=== PATIENT | male | born 1935 | race African-American/Black ===

== ENCOUNTER 2019-01-11 07:45 | Inpatient (IN) ==
[2019-01-11 08:40] LABS: Basophils % 0.2 % (0.0-0.8); Eosinophils % 0.2 % (0.00-10.9); Hematocrit 38.6 VOL% (42.0-52.0); Hemoglobin 12.5 GM/DL (14.0-18.0); Immature Granulocytes % 0.3 %; Immature Granulocytes Absolute 0.02 #; Lymphocytes # 0.7 10*3/uL (1.4-4.0); Lymphocytes % 10.8 % (21.2-54.2); Mean Corpuscular HGB Conc 32.4 GM/DL (32-36); Mean Corpuscular Volume 88.1 FL (87-102); Mean Platelet Volume 9.9 FL (9.6-12.0); Monocytes % 3.7 % (1.7-12.7); Neutrophils % 84.8 % (38.7-73.9); Platelet Count 220 T/CUMM (130-400); Red Blood Count 4.38 MC/CUMM (3.8-5.5); Red Cell Distribution Width 14.7 % (9.3-17.3); White Blood Count 6.3 T/CUMM (4-12)
[2019-01-11 08:48] LABS: INR 1.1; PT Patient Result 11.4 SECS (9.6-12.2)
[2019-01-11 09:06] LABS: Albumin 3.6 G/DL (3.4-5.0); Bilirubin,Total 0.6 MG/DL (0.2-1.0); Calcium 9.1 MG/DL (8.5-10.1); Osmolality,Calculated 289.8 MOS/KG (273-304); Total Protein 7.3 G/DL (6.4-8.3)
[2019-01-11] MEDS ORDERED: cloNIDine 0.1 MG TABLET PO STA (09:43)
[2019-01-11] MEDS ORDERED: ACETAMINOPHEN 325 MG TABLET PO PRN (11:29)
[2019-01-11] MEDS ORDERED: ONDANSETRON 4 MG/2 ML VIAL IV PRN (11:29)
[2019-01-11] MEDS ORDERED: ALBUTEROL/IPRATROPIUM 3 ML NEB RESP TX PRN (11:32)
[2019-01-11] MEDS ORDERED: LORazepam 2 MG/1 ML VIAL IV STA (11:32)
[2019-01-11] MEDS ORDERED: LORazepam 2 MG/1 ML VIAL ONE (11:32)
[2019-01-11] MEDS ORDERED: NITROGLYCERIN SL 0.4 MG TABLET SL PRN (11:33)
[2019-01-11] MEDS ORDERED: hydrALAZINE 20 MG/1 ML VIAL IV PRN (11:35)
[2019-01-11] MEDS ORDERED: UMECLIDINIUM INH SCH (11:45)
[2019-01-11 12:09] LABS: Apearance,Urine CLEAR (Clear); Bacteria,Urine Occasional /HPF (Few); Bilirubin,Urine Negative (Negative); Blood, Urine Large mg/dL (Negative); Glucose,Urine (UA) Negative (Negative); Hyaline Casts,Urine 2 /LPF (0-3); Ketones,Urine Negative (Negative); Mucus,Urine Occasional /LPF (Occasional); Nitrite,Urine Negative (Negative); Protein,Urine Negative; RBC,Urine 659 /HPF (0-4); Urine Color Straw (Yellow); Urine Specific Gravity 1.006 (1.001-1.035); Urine Urobilinogen < 2.0 EU/DL (0.2-1.0); WBC,Urine 9 /HPF (0-6)
[2019-01-11 12:52] LABS: CKMB % 3.4 %
[2019-01-11 12:54] LABS: Troponin I 0.315 NG/ML (0.00-0.045)
[2019-01-11] MEDS: amLODIPine 2.5 MG TABLET PO SCH (14:10)
[2019-01-11] MEDS: ASPIRIN CHEW 81 MG TABLET PO SCH (14:10)
[2019-01-11] MEDS: ROSUVASTATIN 10 MG TABLET PO SCH (14:11)
[2019-01-11] MEDS: MULTIVITAMIN (BEROCCA) TABLET PO SCH (14:11)
[2019-01-11] MEDS: CILOSTAZOL 100 MG TABLET PO SCH ×2 (14:11→21:12)
[2019-01-11] MEDS: SERTRALINE 50 MG TABLET PO SCH (14:17)
[2019-01-11] MEDS: PANTOPRAZOLE 40 MG TABLET PO SCH (14:17)
[2019-01-11] MEDS: FENOFIBRATE 48 MG TABLET PO SCH (14:18)
[2019-01-11] MEDS: FUROSEMIDE 40 MG/4 ML VIAL IV SCH (16:55)
[2019-01-11] MEDS: CARVEDILOL 25 MG TABLET PO SCH (16:58)
[2019-01-11] MEDS: ENOXAPARIN 60 MG/0.6 ML SYRINGE SUBCUT SCH (16:58)
[2019-01-11] MEDS ORDERED: ENOXAPARIN 30 MG/0.3 ML SYRINGE SUBCUT SCH (21:00)
[2019-01-11] MEDS: DONEPEZIL 10 MG TABLET PO SCH (21:12)
[2019-01-11] MEDS: LISINOPRIL 20 MG TABLET PO SCH (21:12)
[2019-01-12] MEDS: ENOXAPARIN 60 MG/0.6 ML SYRINGE SUBCUT SCH (03:54)
[2019-01-12 04:54] LABS: Basophils % 0.2 % (0.0-0.8); Eosinophils % 0.5 % (0.00-10.9); Hemoglobin 11.5 GM/DL (14.0-18.0); Immature Granulocytes % 0.2 %; Immature Granulocytes Absolute 0.01 #; Lymphocytes # 1.6 10*3/uL (1.4-4.0); Lymphocytes % 24.2 % (21.2-54.2); Mean Corpuscular HGB Conc 32.9 GM/DL (32-36); Mean Platelet Volume 10.7 FL (9.6-12.0); Monocytes % 12.8 % (1.7-12.7); Neutrophils % 62.1 % (38.7-73.9); Platelet Count 222 T/CUMM (130-400); Red Blood Count 4.07 MC/CUMM (3.8-5.5); Red Cell Distribution Width 14.7 % (9.3-17.3); White Blood Count 6.4 T/CUMM (4-12)
[2019-01-12 05:38] LABS: Bilirubin,Total 0.6 MG/DL (0.2-1.0); Osmolality,Calculated 290.8 MOS/KG (273-304); Risk Ratio 5.53; Total Protein 6.5 G/DL (6.4-8.3); VLDL CHOLESTEROL 13.8 MG/DL
[2019-01-12 05:41] LABS: Troponin I 0.245 NG/ML (0.00-0.045)
[2019-01-12] MEDS: amLODIPine 2.5 MG TABLET PO SCH (09:23)
[2019-01-12] MEDS: POTASSIUM CHLORIDE 10 MEQ TABLET PO SCH (09:23)
[2019-01-12] MEDS: FENOFIBRATE 48 MG TABLET PO SCH (09:23)
[2019-01-12] MEDS: CILOSTAZOL 100 MG TABLET PO SCH ×2 (09:23→20:58)
[2019-01-12] MEDS: MULTIVITAMIN (BEROCCA) TABLET PO SCH (09:23)
[2019-01-12] MEDS: SERTRALINE 50 MG TABLET PO SCH (09:24)
[2019-01-12] MEDS: PANTOPRAZOLE 40 MG TABLET PO SCH (09:24)
[2019-01-12] MEDS: FUROSEMIDE 40 MG/4 ML VIAL IV SCH ×2 (09:24→17:04)
[2019-01-12] MEDS: ROSUVASTATIN 10 MG TABLET PO SCH (09:24)
[2019-01-12] MEDS: CARVEDILOL 25 MG TABLET PO SCH ×2 (09:24→17:06)
[2019-01-12] MEDS: ASPIRIN CHEW 81 MG TABLET PO SCH (09:26)
[2019-01-12] MEDS: DONEPEZIL 10 MG TABLET PO SCH (20:58)
[2019-01-12] MEDS: LISINOPRIL 20 MG TABLET PO SCH (20:58)
[2019-01-13] MEDS: ENOXAPARIN 40 MG/0.4 ML SYRINGE SUBCUT SCH (05:26)
[2019-01-13] MEDS: ASPIRIN CHEW 81 MG TABLET PO SCH (08:41)
[2019-01-13] MEDS: MULTIVITAMIN (BEROCCA) TABLET PO SCH (08:42)
[2019-01-13] MEDS: CILOSTAZOL 100 MG TABLET PO SCH ×2 (08:42→20:36)
[2019-01-13] MEDS: ROSUVASTATIN 10 MG TABLET PO SCH (08:42)
[2019-01-13] MEDS: SERTRALINE 50 MG TABLET PO SCH (08:42)
[2019-01-13] MEDS: PANTOPRAZOLE 40 MG TABLET PO SCH (08:42)
[2019-01-13] MEDS: amLODIPine 2.5 MG TABLET PO SCH (08:42)
[2019-01-13] MEDS: FENOFIBRATE 48 MG TABLET PO SCH (08:42)
[2019-01-13] MEDS: POTASSIUM CHLORIDE 10 MEQ TABLET PO SCH (08:43)
[2019-01-13] MEDS: FUROSEMIDE 40 MG/4 ML VIAL IV SCH (08:43)
[2019-01-13] MEDS: CARVEDILOL 25 MG TABLET PO SCH ×2 (08:43→16:06)
[2019-01-13] MEDS ORDERED: MAGNESIUM SULF RIDER 2 GM in PREMIX 1 EACH IV PRN (10:02)
[2019-01-13] MEDS ORDERED: MAGNESIUM SULF RIDER 4 GM in PREMIX 1 EACH IV PRN (10:02)
[2019-01-13] MEDS ORDERED: amLODIPine 2.5 MG TABLET PO ONE (10:06)
[2019-01-13] MEDS: FUROSEMIDE 40 MG TABLET PO SCH (16:06)
[2019-01-13] MEDS: LISINOPRIL 20 MG TABLET PO SCH (20:36)
[2019-01-13] MEDS: DONEPEZIL 10 MG TABLET PO SCH (20:36)
[2019-01-14] MEDS: ENOXAPARIN 40 MG/0.4 ML SYRINGE SUBCUT SCH (04:28)
[2019-01-14 04:39] LABS: Basophils % 0.5 % (0.0-0.8); Eosinophils # 0.1 10*3/uL (0.0-0.87); Eosinophils % 1.3 % (0.00-10.9); Hemoglobin 12.8 GM/DL (14.0-18.0); Immature Granulocytes % 0.2 %; Immature Granulocytes Absolute 0.01 #; Lymphocytes # 1.6 10*3/uL (1.4-4.0); Lymphocytes % 24.6 % (21.2-54.2); Mean Corpuscular HGB Conc 32.8 GM/DL (32-36); Mean Corpuscular Volume 85.7 FL (87-102); Mean Platelet Volume 9.9 FL (9.6-12.0); Neutrophils % 62.4 % (38.7-73.9); Platelet Count 214 T/CUMM (130-400); Red Blood Count 4.55 MC/CUMM (3.8-5.5); Red Cell Distribution Width 14.4 % (9.3-17.3); White Blood Count 6.3 T/CUMM (4-12)
[2019-01-14 05:13] LABS: Calcium 9.2 MG/DL (8.5-10.1); Osmolality,Calculated 284.5 MOS/KG (273-304)
[2019-01-14] MEDS: POTASSIUM CHLORIDE 20 MEQ TABLET PO PRN ×2 (05:42→08:36)
[2019-01-14] MEDS: CILOSTAZOL 100 MG TABLET PO SCH ×2 (08:35→21:29)
[2019-01-14] MEDS: PANTOPRAZOLE 40 MG TABLET PO SCH (08:35)
[2019-01-14] MEDS: ASPIRIN CHEW 81 MG TABLET PO SCH (08:35)
[2019-01-14] MEDS: ROSUVASTATIN 10 MG TABLET PO SCH (08:36)
[2019-01-14] MEDS: FENOFIBRATE 48 MG TABLET PO SCH (08:36)
[2019-01-14] MEDS: MULTIVITAMIN (BEROCCA) TABLET PO SCH (08:36)
[2019-01-14] MEDS: POTASSIUM CHLORIDE 10 MEQ TABLET PO SCH (08:36)
[2019-01-14] MEDS: amLODIPine 5 MG TABLET PO SCH (08:36)
[2019-01-14] MEDS: SERTRALINE 50 MG TABLET PO SCH (08:36)
[2019-01-14] MEDS: CARVEDILOL 25 MG TABLET PO SCH ×2 (08:36→18:40)
[2019-01-14] MEDS: FUROSEMIDE 40 MG TABLET PO SCH ×2 (08:37→18:39)
[2019-01-14] MEDS: LISINOPRIL 20 MG TABLET PO SCH (21:29)
[2019-01-14] MEDS: DONEPEZIL 10 MG TABLET PO SCH (21:30)
[2019-01-15] MEDS: ENOXAPARIN 40 MG/0.4 ML SYRINGE SUBCUT SCH (05:17)
[2019-01-15] MEDS: ROSUVASTATIN 10 MG TABLET PO SCH (08:49)
[2019-01-15] MEDS: CILOSTAZOL 100 MG TABLET PO SCH (08:49)
[2019-01-15] MEDS: ASPIRIN CHEW 81 MG TABLET PO SCH (08:49)
[2019-01-15] MEDS: MULTIVITAMIN (BEROCCA) TABLET PO SCH (08:49)
[2019-01-15] MEDS: SERTRALINE 50 MG TABLET PO SCH (08:49)
[2019-01-15] MEDS: PANTOPRAZOLE 40 MG TABLET PO SCH (08:49)
[2019-01-15] MEDS: FENOFIBRATE 48 MG TABLET PO SCH (08:49)
[2019-01-15] MEDS: FUROSEMIDE 40 MG TABLET PO SCH (08:50)
[2019-01-15] MEDS: POTASSIUM CHLORIDE 10 MEQ TABLET PO SCH (08:50)
[2019-01-15] MEDS: CARVEDILOL 25 MG TABLET PO SCH (08:50)
[2019-01-15] MEDS: POTASSIUM CHLORIDE 20 MEQ TABLET PO PRN (08:50)
[2019-01-15] MEDS: amLODIPine 5 MG TABLET PO SCH (08:50)
[2019-01-15 12:14] VITALS: BP 105/56
== END 2019-01-15 15:31 | disposition home health service (06) | DRG 292 ==
LOC: EDUNIT# → EDBD → N.ED 07:45 → N.EDINP 11:28 → SUATTDRO 11:28 → N.EDINP 12:15 → N.TELES 12:44
PROVIDERS: ADMIT Internal Medicine; ATTEND Internal Medicine Geriatric Medicine

== ENCOUNTER 2019-12-30 16:20 | Inpatient (IN) ==
[2019-12-30] MEDS ORDERED: ALBUTEROL/IPRATROPIUM 3 ML NEB RESP TX STA (17:06)
[2019-12-30 17:36] LABS: Troponin I 0.087 NG/ML (0.00-0.045)
[2019-12-30 17:45] LABS: Bilirubin,Total 0.5 MG/DL (0.2-1.0); Calcium 9.1 MG/DL (8.5-10.1); Osmolality,Calculated 286.8 MOS/KG (273-304); Total Protein 6.8 G/DL (6.4-8.3)
[2019-12-30 17:52] LABS: Basophils % 0.3 % (0.0-0.8); Eosinophils % 0.4 % (0.00-10.9); Hematocrit 35.6 VOL% (42.0-52.0); Hemoglobin 11.5 GM/DL (14.0-18.0); Immature Granulocytes % 0.3 %; Immature Granulocytes Absolute 0.02 #; Lymphocytes # 1.2 10*3/uL (1.4-4.0); Lymphocytes % 15.8 % (21.2-54.2); Mean Corpuscular HGB Conc 32.3 GM/DL (32-36); Mean Platelet Volume 9.5 FL (9.6-12.0); Monocytes % 6.8 % (1.7-12.7); Neutrophils % 76.4 % (38.7-73.9); Platelet Count 184 T/CUMM (130-400); Red Blood Count 4.09 MC/CUMM (3.8-5.5); Red Cell Distribution Width 14.9 % (9.3-17.3); White Blood Count 7.6 T/CUMM (4-12)
[2019-12-30 18:18] LABS: INR 1.1; PT Patient Result 11.9 SECS (9.8-11.9); Partial Thromboplastin Time 25.8 SECS (23.9-33.8)
[2019-12-30] MEDS ORDERED: DEXTROSE 50% 25 GM/50 ML VIAL IV PRN (19:10)
[2019-12-30] MEDS ORDERED: GLUCAGON 1 MG VIAL IM PRN (19:10)
[2019-12-30] MEDS ORDERED: MAGNESIUM SULF RIDER 2 GM in PREMIX 1 EACH IV PRN (19:21)
[2019-12-30] MEDS ORDERED: hydrALAZINE 20 MG/1 ML VIAL IV PRN (19:32)
[2019-12-30] MEDS ORDERED: LORazepam 2 MG/1 ML VIAL IM STA (19:47)
[2019-12-31 00:14] LABS: Troponin I 0.112 NG/ML (0.00-0.045)
[2019-12-31] MEDS: ENOXAPARIN 40 MG/0.4 ML SYRINGE SUBCUT SCH ×2 (01:47→20:33)
[2019-12-31 01:53] LABS: Troponin I 0.147 NG/ML (0.00-0.045)
[2019-12-31] MEDS: ALBUTEROL/IPRATROPIUM 3 ML NEB RESP TX SCH ×4 (02:10→20:22)
[2019-12-31] MEDS ORDERED: LORazepam 2 MG/1 ML VIAL IM ONE (02:30)
[2019-12-31 06:02] LABS: Basophils % 0.3 % (0.0-0.8); Eosinophils % 0.2 % (0.00-10.9); Hematocrit 34.8 VOL% (42.0-52.0); Hemoglobin 11.3 GM/DL (14.0-18.0); Immature Granulocytes % 0.3 %; Immature Granulocytes Absolute 0.02 #; Lymphocytes # 1.1 10*3/uL (1.4-4.0); Lymphocytes % 16.3 % (21.2-54.2); Mean Corpuscular HGB Conc 32.5 GM/DL (32-36); Mean Platelet Volume 10.7 FL (9.6-12.0); Monocytes % 7.5 % (1.7-12.7); Neutrophils % 75.4 % (38.7-73.9); Platelet Count 193 T/CUMM (130-400); Red Cell Distribution Width 14.8 % (9.3-17.3); White Blood Count 6.6 T/CUMM (4-12)
[2019-12-31 06:59] LABS: Calcium 9.2 MG/DL (8.5-10.1); Risk Ratio 5.72; Thyroid Stimulating Hormone 1.35 uIU/ml (0.358-3.74); VLDL CHOLESTEROL 17.2 MG/DL
[2019-12-31] MEDS ORDERED: POTASSIUM CHLORIDE 20 MEQ TABLET PO ONE (07:52)
[2019-12-31] MEDS: ASPIRIN EC 325 MG TABLET PO SCH (09:13)
[2019-12-31] MEDS: PANTOPRAZOLE 40 MG TABLET PO SCH (09:13)
[2019-12-31] MEDS: FUROSEMIDE 40 MG TABLET PO SCH ×2 (09:21→18:04)
[2019-12-31] MEDS ORDERED: HALOPERIDOL 5 MG/ML AMP IV ONE (13:37)
[2019-12-31] MEDS: HALOPERIDOL 5 MG/ML AMP IV PRN (20:21)
[2019-12-31] MEDS: lisinopriL 20 MG TABLET PO SCH (20:33)
[2019-12-31] MEDS: carvediloL 25 MG TABLET PO SCH (20:33)
[2019-12-31] MEDS: DONEPEZIL 10 MG TABLET PO SCH (20:33)
[2020-01-01] MEDS: HALOPERIDOL 5 MG/ML AMP IV PRN (03:00)
[2020-01-01] MEDS: ALBUTEROL/IPRATROPIUM 3 ML NEB RESP TX SCH ×4 (03:15→20:05)
[2020-01-01] MEDS: ACETAMINOPHEN 325 MG TABLET PO PRN (04:05)
[2020-01-01 08:14] LABS: Calcium 9.8 MG/DL (8.5-10.1); Osmolality,Calculated 279.4 MOS/KG (273-304)
[2020-01-01] MEDS: ZIPRASIDONE 20 MG/1 ML VIAL IM PRN ×2 (08:32→23:00)
[2020-01-01] MEDS ORDERED: amLODIPine 2.5 MG TABLET PO SCH (09:00)
[2020-01-01] MEDS ORDERED: ASPIRIN EC 81 MG TABLET PO SCH (09:00)
[2020-01-01] MEDS ORDERED: hydrALAZINE 25 MG TABLET PO SCH ×2 (09:00)
[2020-01-01] MEDS ORDERED: TUBERCULIN SKIN TEST 0.1 ML SYRINGE INTRADERM ONE (09:12)
[2020-01-01] MEDS: POTASSIUM CHLORIDE 10 MEQ TABLET PO SCH (09:48)
[2020-01-01] MEDS: FUROSEMIDE 40 MG TABLET PO SCH (09:48)
[2020-01-01] MEDS: carvediloL 25 MG TABLET PO SCH ×2 (09:48→20:50)
[2020-01-01] MEDS: ASPIRIN EC 325 MG TABLET PO SCH (09:48)
[2020-01-01] MEDS: SERTRALINE 50 MG TABLET PO SCH (09:48)
[2020-01-01] MEDS: NON-FORMULARY MEDICATION (Umeclidinium [Incruse Ellipta] 1 PUFF) INH SCH (09:49)
[2020-01-01] MEDS: POTASSIUM CHLORIDE 20 MEQ TABLET PO PRN (09:49)
[2020-01-01] MEDS: ISOSORBIDE MONONITRATE 30 MG TABLET PO SCH (09:49)
[2020-01-01] MEDS: MULTIVITAMIN (CENTRUM) TABLET PO SCH (09:49)
[2020-01-01] MEDS: PANTOPRAZOLE 40 MG TABLET PO SCH (09:49)
[2020-01-01] MEDS: ROSUVASTATIN 10 MG TABLET PO SCH (09:49)
[2020-01-01] MEDS: DONEPEZIL 10 MG TABLET PO SCH (20:50)
[2020-01-01] MEDS: hydrALAZINE 25 MG TABLET PO SCH (20:50)
[2020-01-01] MEDS: ENOXAPARIN 40 MG/0.4 ML SYRINGE SUBCUT SCH (20:50)
[2020-01-01] MEDS: lisinopriL 20 MG TABLET PO SCH (20:50)
[2020-01-02] MEDS: ALBUTEROL/IPRATROPIUM 3 ML NEB RESP TX SCH ×4 (01:11→19:41)
[2020-01-02] MEDS: carvediloL 25 MG TABLET PO SCH ×2 (09:25→20:27)
[2020-01-02] MEDS: SERTRALINE 50 MG TABLET PO SCH (09:25)
[2020-01-02] MEDS: PANTOPRAZOLE 40 MG TABLET PO SCH (09:25)
[2020-01-02] MEDS: MULTIVITAMIN (CENTRUM) TABLET PO SCH (09:25)
[2020-01-02] MEDS: FUROSEMIDE 40 MG TABLET PO SCH (09:25)
[2020-01-02] MEDS: ISOSORBIDE MONONITRATE 30 MG TABLET PO SCH (09:25)
[2020-01-02] MEDS: ASPIRIN EC 325 MG TABLET PO SCH (09:25)
[2020-01-02] MEDS: ROSUVASTATIN 10 MG TABLET PO SCH (09:25)
[2020-01-02] MEDS: hydrALAZINE 25 MG TABLET PO SCH ×2 (09:25→20:27)
[2020-01-02] MEDS: POTASSIUM CHLORIDE 10 MEQ TABLET PO SCH (09:25)
[2020-01-02 09:26] LABS: Basophils % 0.3 % (0.0-0.8); Eosinophils % 0.5 % (0.00-10.9); Hematocrit 36.8 VOL% (42.0-52.0); Hemoglobin 12.1 GM/DL (14.0-18.0); Immature Granulocytes % 0.2 %; Immature Granulocytes Absolute 0.01 #; Lymphocytes # 1.2 10*3/uL (1.4-4.0); Lymphocytes % 20.6 % (21.2-54.2); Mean Corpuscular HGB Conc 32.9 GM/DL (32-36); Mean Corpuscular Volume 86.4 FL (87-102); Mean Platelet Volume 10.2 FL (9.6-12.0); Neutrophils % 70.4 % (38.7-73.9); Platelet Count 218 T/CUMM (130-400); Red Blood Count 4.26 MC/CUMM (3.8-5.5); White Blood Count 5.9 T/CUMM (4-12)
[2020-01-02] MEDS: NON-FORMULARY MEDICATION (Umeclidinium [Incruse Ellipta] 1 PUFF) INH SCH (09:26)
[2020-01-02] MEDS ORDERED: HALOPERIDOL 5 MG/ML AMP IV PRN (09:41)
[2020-01-02 09:42] LABS: Calcium 9.7 MG/DL (8.5-10.1); Osmolality,Calculated 283.4 MOS/KG (273-304)
[2020-01-02] MEDS: ENOXAPARIN 40 MG/0.4 ML SYRINGE SUBCUT SCH (20:27)
[2020-01-02] MEDS: DONEPEZIL 10 MG TABLET PO SCH (20:27)
[2020-01-02] MEDS: lisinopriL 20 MG TABLET PO SCH (20:27)
[2020-01-03] MEDS: ALBUTEROL/IPRATROPIUM 3 ML NEB RESP TX SCH ×4 (00:18→19:25)
[2020-01-03] MEDS: ONDANSETRON 4 MG/2 ML VIAL IV PRN (01:28)
[2020-01-03] MEDS ORDERED: POTASSIUM CHLORIDE 20 MEQ TABLET PO ONE (07:42)
[2020-01-03 09:06] LABS: Calcium 9.5 MG/DL (8.5-10.1)
[2020-01-03] MEDS: ROSUVASTATIN 10 MG TABLET PO SCH (09:35)
[2020-01-03] MEDS: MULTIVITAMIN (CENTRUM) TABLET PO SCH (09:35)
[2020-01-03] MEDS: POTASSIUM CHLORIDE 10 MEQ TABLET PO SCH (09:35)
[2020-01-03] MEDS: ASPIRIN EC 325 MG TABLET PO SCH (09:35)
[2020-01-03] MEDS: FUROSEMIDE 40 MG TABLET PO SCH (09:35)
[2020-01-03] MEDS: ISOSORBIDE MONONITRATE 30 MG TABLET PO SCH (09:36)
[2020-01-03] MEDS: carvediloL 25 MG TABLET PO SCH ×2 (09:36→21:03)
[2020-01-03] MEDS: SERTRALINE 50 MG TABLET PO SCH (09:36)
[2020-01-03] MEDS: PANTOPRAZOLE 40 MG TABLET PO SCH (09:36)
[2020-01-03] MEDS: NON-FORMULARY MEDICATION (Umeclidinium [Incruse Ellipta] 1 PUFF) INH SCH (09:36)
[2020-01-03] MEDS: hydrALAZINE 25 MG TABLET PO SCH ×2 (09:36→21:03)
[2020-01-03] MEDS: ENOXAPARIN 40 MG/0.4 ML SYRINGE SUBCUT SCH (21:03)
[2020-01-03] MEDS: lisinopriL 20 MG TABLET PO SCH (21:03)
[2020-01-03] MEDS: DONEPEZIL 10 MG TABLET PO SCH (21:03)
[2020-01-04] MEDS: ALBUTEROL/IPRATROPIUM 3 ML NEB RESP TX SCH ×4 (00:14→19:40)
[2020-01-04 05:57] LABS: Calcium 9.7 MG/DL (8.5-10.1); Osmolality,Calculated 288.3 MOS/KG (273-304)
[2020-01-04] MEDS: ACETAMINOPHEN 325 MG TABLET PO PRN (06:05)
[2020-01-04] MEDS: hydrALAZINE 25 MG TABLET PO SCH ×2 (08:25→21:36)
[2020-01-04] MEDS: PANTOPRAZOLE 40 MG TABLET PO SCH (08:25)
[2020-01-04] MEDS: ONDANSETRON 4 MG/2 ML VIAL IV PRN (08:25)
[2020-01-04] MEDS: FUROSEMIDE 40 MG TABLET PO SCH (08:25)
[2020-01-04] MEDS: ASPIRIN EC 325 MG TABLET PO SCH (08:25)
[2020-01-04] MEDS: ISOSORBIDE MONONITRATE 30 MG TABLET PO SCH (08:25)
[2020-01-04] MEDS: ROSUVASTATIN 10 MG TABLET PO SCH (08:25)
[2020-01-04] MEDS: MULTIVITAMIN (CENTRUM) TABLET PO SCH (08:25)
[2020-01-04] MEDS: carvediloL 25 MG TABLET PO SCH ×2 (08:25→21:36)
[2020-01-04] MEDS: SERTRALINE 50 MG TABLET PO SCH (08:25)
[2020-01-04] MEDS: POTASSIUM CHLORIDE 20 MEQ TABLET PO PRN (08:25)
[2020-01-04] MEDS: POTASSIUM CHLORIDE 10 MEQ TABLET PO SCH (08:25)
[2020-01-04] MEDS: NON-FORMULARY MEDICATION (Umeclidinium [Incruse Ellipta] 1 PUFF) INH SCH (10:25)
[2020-01-04] MEDS ORDERED: SODIUM CHLORIDE 0.9% 250 ML IV ONE (14:24)
[2020-01-04] MEDS: lisinopriL 20 MG TABLET PO SCH (21:35)
[2020-01-04] MEDS: DONEPEZIL 10 MG TABLET PO SCH (21:35)
[2020-01-04] MEDS: DOCUSATE SODIUM 100 MG/10 ML UDCUP PO SCH (21:37)
[2020-01-04] MEDS: ENOXAPARIN 40 MG/0.4 ML SYRINGE SUBCUT SCH (21:39)
[2020-01-05] MEDS: ALBUTEROL/IPRATROPIUM 3 ML NEB RESP TX SCH ×4 (01:12→19:18)
[2020-01-05] MEDS: ONDANSETRON 4 MG/2 ML VIAL IV PRN (03:03)
[2020-01-05 06:00] LABS: Basophils % 0.2 % (0.0-0.8); Eosinophils # 0.1 10*3/uL (0.0-0.87); Eosinophils % 1.9 % (0.00-10.9); Hematocrit 37.2 VOL% (42.0-52.0); Hemoglobin 12.1 GM/DL (14.0-18.0); Immature Granulocytes % 0.2 %; Immature Granulocytes Absolute 0.01 #; Lymphocytes # 1.7 10*3/uL (1.4-4.0); Lymphocytes % 32.4 % (21.2-54.2); Mean Corpuscular HGB Conc 32.5 GM/DL (32-36); Mean Corpuscular Volume 86.5 FL (87-102); Mean Platelet Volume 10.7 FL (9.6-12.0); Neutrophils % 54.3 % (38.7-73.9); Platelet Count 237 T/CUMM (130-400); Red Cell Distribution Width 15.5 % (9.3-17.3); White Blood Count 5.3 T/CUMM (4-12)
[2020-01-05 06:18] LABS: Calcium 9.6 MG/DL (8.5-10.1); Osmolality,Calculated 287.3 MOS/KG (273-304)
[2020-01-05] MEDS: carvediloL 25 MG TABLET PO SCH ×2 (09:47→22:26)
[2020-01-05] MEDS: SERTRALINE 50 MG TABLET PO SCH (09:47)
[2020-01-05] MEDS: FUROSEMIDE 40 MG TABLET PO SCH (09:47)
[2020-01-05] MEDS: POTASSIUM CHLORIDE 10 MEQ TABLET PO SCH (09:47)
[2020-01-05] MEDS: MULTIVITAMIN (CENTRUM) TABLET PO SCH (09:47)
[2020-01-05] MEDS: ISOSORBIDE MONONITRATE 30 MG TABLET PO SCH (09:47)
[2020-01-05] MEDS: hydrALAZINE 25 MG TABLET PO SCH ×2 (09:47→22:24)
[2020-01-05] MEDS: PANTOPRAZOLE 40 MG TABLET PO SCH (09:47)
[2020-01-05] MEDS: ASPIRIN EC 325 MG TABLET PO SCH (09:47)
[2020-01-05] MEDS: ROSUVASTATIN 10 MG TABLET PO SCH (09:47)
[2020-01-05] MEDS: NON-FORMULARY MEDICATION (Umeclidinium [Incruse Ellipta] 1 PUFF) INH SCH (09:49)
[2020-01-05] MEDS: DOCUSATE SODIUM 100 MG/10 ML UDCUP PO SCH ×2 (09:49→22:27)
[2020-01-05 13:30] LABS: Troponin I 0.037 NG/ML (0.00-0.045)
[2020-01-05 15:24] LABS: Troponin I 0.033 NG/ML (0.00-0.045)
[2020-01-05 19:00] LABS: Apearance,Urine Slightly Hazy (Clear); Bacteria,Urine Occasional /HPF (Few); Bilirubin,Urine Negative (Negative); Blood, Urine Negative (Negative); Glucose,Urine (UA) Negative (Negative); Hyaline Casts,Urine 13 /LPF (0-3); Ketones,Urine Negative (Negative); Mucus,Urine Occasional /LPF (Occasional); Nitrite,Urine Negative (Negative); Protein,Urine Negative; Squamous Epithelial Cell,Urine Occasional /HPF (0-10); Urine Color Yellow (Yellow); Urine Specific Gravity 1.009 (1.001-1.035); Urine Urobilinogen < 2.0 EU/DL (0.2-1.0); WBC,Urine 71 /HPF (0-6)
[2020-01-05] MEDS: DONEPEZIL 10 MG TABLET PO SCH (22:24)
[2020-01-05] MEDS: lisinopriL 20 MG TABLET PO SCH (22:26)
[2020-01-05] MEDS: ENOXAPARIN 40 MG/0.4 ML SYRINGE SUBCUT SCH (22:30)
[2020-01-06] MEDS: ALBUTEROL/IPRATROPIUM 3 ML NEB RESP TX SCH ×4 (00:40→19:46)
[2020-01-06 05:39] LABS: Calcium 9.7 MG/DL (8.5-10.1); Osmolality,Calculated 284.4 MOS/KG (273-304)
[2020-01-06] MEDS: DOCUSATE SODIUM 100 MG/10 ML UDCUP PO SCH ×2 (09:44→21:55)
[2020-01-06] MEDS: ROSUVASTATIN 10 MG TABLET PO SCH (09:44)
[2020-01-06] MEDS: ASPIRIN EC 325 MG TABLET PO SCH (09:44)
[2020-01-06] MEDS: SERTRALINE 50 MG TABLET PO SCH (09:44)
[2020-01-06] MEDS: PANTOPRAZOLE 40 MG TABLET PO SCH (09:44)
[2020-01-06] MEDS: MULTIVITAMIN (CENTRUM) TABLET PO SCH (09:44)
[2020-01-06] MEDS: ISOSORBIDE MONONITRATE 30 MG TABLET PO SCH (09:44)
[2020-01-06] MEDS: hydrALAZINE 25 MG TABLET PO SCH (09:44)
[2020-01-06] MEDS: FUROSEMIDE 20 MG TABLET PO SCH (09:44)
[2020-01-06] MEDS: POTASSIUM CHLORIDE 10 MEQ TABLET PO SCH (09:44)
[2020-01-06] MEDS: carvediloL 25 MG TABLET PO SCH (09:44)
[2020-01-06] MEDS: NON-FORMULARY MEDICATION (Umeclidinium [Incruse Ellipta] 1 PUFF) INH SCH (09:45)
[2020-01-06] MEDS ORDERED: SODIUM CHLORIDE 0.9% 500 ML IV ONE (13:48)
[2020-01-06] MEDS: hydrALAZINE 10 MG TABLET PO SCH (21:55)
[2020-01-06] MEDS: lisinopriL 10 MG TABLET PO SCH (21:55)
[2020-01-06] MEDS: DONEPEZIL 10 MG TABLET PO SCH (21:56)
[2020-01-06] MEDS: carvediloL 12.5 MG TABLET PO SCH (21:56)
[2020-01-06] MEDS: ENOXAPARIN 40 MG/0.4 ML SYRINGE SUBCUT SCH (21:56)
[2020-01-07] MEDS: ALBUTEROL/IPRATROPIUM 3 ML NEB RESP TX SCH ×4 (00:42→19:33)
[2020-01-07 05:54] LABS: Basophils % 0.4 % (0.0-0.8); Eosinophils # 0.1 10*3/uL (0.0-0.87); Eosinophils % 2.2 % (0.00-10.9); Hematocrit 37.2 VOL% (42.0-52.0); Hemoglobin 12.1 GM/DL (14.0-18.0); Lymphocytes # 2.1 10*3/uL (1.4-4.0); Lymphocytes % 38.2 % (21.2-54.2); Mean Corpuscular HGB Conc 32.5 GM/DL (32-36); Mean Corpuscular Volume 87.5 FL (87-102); Mean Platelet Volume 10.6 FL (9.6-12.0); Monocytes % 10.3 % (1.7-12.7); Neutrophils % 48.9 % (38.7-73.9); Platelet Count 242 T/CUMM (130-400); Red Blood Count 4.25 MC/CUMM (3.8-5.5); Red Cell Distribution Width 15.4 % (9.3-17.3); White Blood Count 5.5 T/CUMM (4-12)
[2020-01-07 06:22] LABS: Calcium 9.6 MG/DL (8.5-10.1); Osmolality,Calculated 286.4 MOS/KG (273-304)
[2020-01-07] MEDS: PANTOPRAZOLE 40 MG TABLET PO SCH (08:44)
[2020-01-07] MEDS: DOCUSATE SODIUM 100 MG/10 ML UDCUP PO SCH ×2 (08:44→21:55)
[2020-01-07] MEDS: MULTIVITAMIN (CENTRUM) TABLET PO SCH (08:44)
[2020-01-07] MEDS: hydrALAZINE 10 MG TABLET PO SCH ×2 (08:44→21:56)
[2020-01-07] MEDS: POTASSIUM CHLORIDE 10 MEQ TABLET PO SCH (08:44)
[2020-01-07] MEDS: SERTRALINE 50 MG TABLET PO SCH (08:44)
[2020-01-07] MEDS: NON-FORMULARY MEDICATION (Umeclidinium [Incruse Ellipta] 1 PUFF) INH SCH (08:45)
[2020-01-07] MEDS: ISOSORBIDE MONONITRATE 30 MG TABLET PO SCH (08:45)
[2020-01-07] MEDS: carvediloL 12.5 MG TABLET PO SCH ×2 (08:45→21:56)
[2020-01-07] MEDS: FUROSEMIDE 20 MG TABLET PO SCH (08:45)
[2020-01-07] MEDS: ASPIRIN EC 325 MG TABLET PO SCH (08:45)
[2020-01-07] MEDS: ROSUVASTATIN 10 MG TABLET PO SCH (08:45)
[2020-01-07] MEDS: ENOXAPARIN 40 MG/0.4 ML SYRINGE SUBCUT SCH (21:55)
[2020-01-07] MEDS: DONEPEZIL 10 MG TABLET PO SCH (21:55)
[2020-01-07] MEDS: lisinopriL 10 MG TABLET PO SCH (21:56)
[2020-01-08] MEDS: ALBUTEROL/IPRATROPIUM 3 ML NEB RESP TX SCH ×2 (00:47→07:53)
[2020-01-08 06:18] LABS: Basophils % 0.4 % (0.0-0.8); Eosinophils # 0.1 10*3/uL (0.0-0.87); Eosinophils % 1.6 % (0.00-10.9); Hematocrit 42.9 VOL% (42.0-52.0); Immature Granulocytes % 0.1 %; Immature Granulocytes Absolute 0.01 #; Lymphocytes # 1.9 10*3/uL (1.4-4.0); Lymphocytes % 27.8 % (21.2-54.2); Mean Corpuscular HGB Conc 32.6 GM/DL (32-36); Mean Corpuscular Volume 86.1 FL (87-102); Mean Platelet Volume 11.3 FL (9.6-12.0); Monocytes % 9.8 % (1.7-12.7); Neutrophils % 60.3 % (38.7-73.9); Platelet Count 234 T/CUMM (130-400); Red Blood Count 4.98 MC/CUMM (3.8-5.5); Red Cell Distribution Width 15.6 % (9.3-17.3); White Blood Count 6.8 T/CUMM (4-12)
[2020-01-08 06:53] LABS: Osmolality,Calculated 281.7 MOS/KG (273-304)
[2020-01-08 07:54] VITALS: BP 141/71
[2020-01-08] MEDS: SERTRALINE 50 MG TABLET PO SCH (09:18)
[2020-01-08] MEDS: POTASSIUM CHLORIDE 10 MEQ TABLET PO SCH (09:18)
[2020-01-08] MEDS: MULTIVITAMIN (CENTRUM) TABLET PO SCH (09:18)
[2020-01-08] MEDS: ISOSORBIDE MONONITRATE 30 MG TABLET PO SCH (09:18)
[2020-01-08] MEDS: FUROSEMIDE 20 MG TABLET PO SCH (09:18)
[2020-01-08] MEDS: PANTOPRAZOLE 40 MG TABLET PO SCH (09:18)
[2020-01-08] MEDS: hydrALAZINE 10 MG TABLET PO SCH (09:18)
[2020-01-08] MEDS: ASPIRIN EC 325 MG TABLET PO SCH (09:18)
[2020-01-08] MEDS: ROSUVASTATIN 10 MG TABLET PO SCH (09:18)
[2020-01-08] MEDS: carvediloL 12.5 MG TABLET PO SCH (09:18)
[2020-01-08] MEDS: NON-FORMULARY MEDICATION (Umeclidinium [Incruse Ellipta] 1 PUFF) INH SCH (09:19)
[2020-01-08] MEDS: DOCUSATE SODIUM 100 MG/10 ML UDCUP PO SCH (09:19)
== END 2020-01-08 11:04 | DRG 291 ==
LOC: EDUNIT# → EDBD → N.EDINP 16:20 → N.ED 16:20 → SUATTDRO 19:10 → N.EDINP 12-31 00:35 → N.TELEN 12-31 01:27 → SUATTDRO 01-02 17:11
PROVIDERS: ADMIT Family Medicine; ATTEND Internal Medicine

== ENCOUNTER 2020-04-19 20:48 | Inpatient (IN) ==
[2020-04-19] MEDS ORDERED: SODIUM CHLORIDE 0.9% 1,000 ML IV STA (21:59)
[2020-04-19 23:47] LABS: Basophils % 0.4 % (0.0-0.8); Eosinophils # 0.3 10*3/uL (0.0-0.87); Hematocrit 39.1 VOL% (42.0-52.0); Hemoglobin 12.4 GM/DL (14.0-18.0); Immature Granulocytes % 0.1 %; Immature Granulocytes Absolute 0.01 #; Lymphocytes # 1.9 10*3/uL (1.4-4.0); Lymphocytes % 27.2 % (21.2-54.2); Mean Corpuscular HGB Conc 31.7 GM/DL (32-36); Mean Corpuscular Volume 88.9 FL (87-102); Mean Platelet Volume 11.6 FL (9.6-12.0); Monocytes % 10.6 % (1.7-12.7); Neutrophils % 57.7 % (38.7-73.9); Platelet Count 149 T/CUMM (130-400); Red Cell Distribution Width 16.2 % (9.3-17.3)
[2020-04-19 23:51] LABS: Bacteria,Urine Moderate /HPF (Few); Bilirubin,Urine Negative (Negative); Blood, Urine Large mg/dL (Negative); Glucose,Urine (UA) Negative (Negative); Ketones,Urine Negative (Negative); Mucus,Urine Occasional /LPF (Occasional); Nitrite,Urine Negative (Negative); Protein,Urine 100 MG/DL; RBC,Urine 271 /HPF (0-4); Renal Epithelial Cells,Urine Occasional /HPF (<1); Squamous Epithelial Cell,Urine Occasional /HPF (0-10); Urine Appearance CLOUDY (Clear); Urine Color Amber (Yellow); Urine Specific Gravity 1.018 (1.001-1.035); WBC,Urine 578 /HPF (0-6)
[2020-04-20] LABS: INR 1.1; PT Patient Result 12.1 SECS (9.8-11.9)
[2020-04-20] MEDS ORDERED: cefTRIAXone 1,000 MG in SODIUM CHLORIDE 0.9% 100 ML IV STA (00:05)
[2020-04-20 00:06] LABS: Alanine Aminotransferase 23 U/L (16-61); Albumin 2.5 G/DL (3.4-5.0); Alkaline Phosphatase 44 U/L (45-117); Aspartate Amino Transferase 83 U/L (0-37); Blood Urea Nitrogen 58 MG/DL (7-18); Estimated Glom Filtration Rate 36 ML/MIN; Glucose 119 MG/DL (74-106); Total Protein 6.7 G/DL (6.4-8.3)
[2020-04-20 00:07] LABS: Troponin I 0.071 NG/ML (0.00-0.045)
[2020-04-20] MEDS ORDERED: GLUCAGON 1 MG VIAL IM PRN ×2 (01:14→01:41)
[2020-04-20] MEDS ORDERED: DEXTROSE 50% 25 GM/50 ML VIAL IV PRN ×2 (01:14→01:41)
[2020-04-20] MEDS: DEXTROSE 5% 1,000 ML IV SCH ×2 (03:23→16:16)
[2020-04-20] MEDS: INSULIN LISPRO 100 UNIT/ML SUBCUT SCH ×3 (06:41→18:38)
[2020-04-20 07:46] LABS: Basophils % 0.5 % (0.0-0.8); Eosinophils # 0.2 10*3/uL (0.0-0.87); Eosinophils % 3.4 % (0.00-10.9); Hemoglobin 12.7 GM/DL (14.0-18.0); Immature Granulocytes % 0.3 %; Immature Granulocytes Absolute 0.02 #; Lymphocytes # 1.9 10*3/uL (1.4-4.0); Lymphocytes % 30.6 % (21.2-54.2); Mean Corpuscular HGB Conc 31.8 GM/DL (32-36); Mean Corpuscular Volume 89.5 FL (87-102); Mean Platelet Volume 11.8 FL (9.6-12.0); Monocytes % 10.6 % (1.7-12.7); Neutrophils % 54.6 % (38.7-73.9); Platelet Count 157 T/CUMM (130-400); Red Blood Count 4.47 MC/CUMM (3.8-5.5); Red Cell Distribution Width 16.2 % (9.3-17.3); White Blood Count 6.3 T/CUMM (4-12)
[2020-04-20 08:17] LABS: Calcium 9.4 MG/DL (8.5-10.1)
[2020-04-20 08:23] LABS: Albumin 2.7 G/DL (3.4-5.0); Bilirubin,Direct 0.29 MG/DL (0.0-0.20); Bilirubin,Indirect 1.2 MG/DL (0.0-1.0); Bilirubin,Total 1.5 MG/DL (0.2-1.0); Total Protein 6.5 G/DL (6.4-8.3)
[2020-04-20] MEDS: PANTOPRAZOLE 40 MG TABLET PO SCH (08:48)
[2020-04-20] MEDS ORDERED: ASPIRIN EC 81 MG TABLET PO SCH (09:00)
[2020-04-20] MEDS ORDERED: ENOXAPARIN 40 MG/0.4 ML SYRINGE SUBCUT SCH (09:00)
[2020-04-20] MEDS ORDERED: NITROGLYCERIN SL 0.4 MG TABLET SL PRN (13:16)
[2020-04-20] MEDS ORDERED: ALBUTEROL 2.5 MG/3 ML NEB RESP TX PRN (13:16)
[2020-04-20] MEDS ORDERED: ZALEPLON 5 MG CAPSULE PO PRN (13:16)
[2020-04-20] MEDS: SKIN HEALING OINT (AQUAPHOR) 50 GM TUBE TOP SCH (16:16)
[2020-04-20] MEDS: hydrALAZINE 25 MG TABLET PO SCH ×2 (16:16→21:09)
[2020-04-20] MEDS ORDERED: VALPROIC ACID 250 MG/5 ML UDCUP PO SCH (21:00)
[2020-04-20] MEDS ORDERED: lisinopriL 10 MG TABLET PO SCH (21:00)
[2020-04-20] MEDS: ATORVASTATIN 20 MG TABLET PO SCH (21:08)
[2020-04-20] MEDS: DONEPEZIL 10 MG TABLET PO SCH (21:09)
[2020-04-20] MEDS: carvediloL 12.5 MG TABLET PO SCH (21:09)
[2020-04-20] MEDS: GABAPENTIN 300 MG CAPSULE PO SCH (21:09)
[2020-04-20] MEDS: risperiDONE 0.5 MG TABLET PO SCH (21:09)
[2020-04-20] MEDS: FLUTICASONE/SALMETEROL 100-50 DISKUS 14 DOSE INH SCH (21:10)
[2020-04-20] MEDS: MEGESTROL 400 MG/10 ML UDCUP PO SCH (21:24)
[2020-04-21] MEDS: INSULIN LISPRO 100 UNIT/ML SUBCUT SCH ×5 (00:55→23:16)
[2020-04-21] MEDS: cefTRIAXone 1,000 MG in SYRINGE 1 EACH IV SCH (02:34)
[2020-04-21] MEDS: cefTRIAXone 1,000 MG VIAL IM ONE ×2 (03:43→04:27)
[2020-04-21] MEDS: LEVOTHYROXINE 50 MCG TABLET PO SCH (05:33)
[2020-04-21 07:38] LABS: Basophils % 0.5 % (0.0-0.8); Eosinophils # 0.2 10*3/uL (0.0-0.87); Hematocrit 42.3 VOL% (42.0-52.0); Hemoglobin 13.3 GM/DL (14.0-18.0); Immature Granulocytes % 0.3 %; Immature Granulocytes Absolute 0.02 #; Lymphocytes % 33.4 % (21.2-54.2); Mean Corpuscular HGB Conc 31.4 GM/DL (32-36); Mean Corpuscular Volume 89.6 FL (87-102); Mean Platelet Volume 12.1 FL (9.6-12.0); Monocytes % 8.8 % (1.7-12.7); Platelet Count 159 T/CUMM (130-400); Red Blood Count 4.72 MC/CUMM (3.8-5.5); Red Cell Distribution Width 16.1 % (9.3-17.3)
[2020-04-21 08:02] LABS: Albumin 2.7 G/DL (3.4-5.0); Bilirubin,Total 0.6 MG/DL (0.2-1.0); Calcium 9.5 MG/DL (8.5-10.1); Osmolality,Calculated 315.7 MOS/KG (273-304); Total Protein 7.2 G/DL (6.4-8.3)
[2020-04-21] MEDS ORDERED: FUROSEMIDE 20 MG TABLET PO SCH (09:00)
[2020-04-21 09:04] LABS: Basophils % 0.5 % (0.0-0.8); Eosinophils # 0.2 10*3/uL (0.0-0.87); Hematocrit 40.4 VOL% (42.0-52.0); Hemoglobin 12.6 GM/DL (14.0-18.0); Immature Granulocytes % 0.4 %; Immature Granulocytes Absolute 0.02 #; Lymphocytes % 35.2 % (21.2-54.2); Mean Corpuscular HGB Conc 31.2 GM/DL (32-36); Mean Platelet Volume 11.5 FL (9.6-12.0); Monocytes % 8.6 % (1.7-12.7); Neutrophils % 51.3 % (38.7-73.9); Platelet Count 146 T/CUMM (130-400); Red Blood Count 4.44 MC/CUMM (3.8-5.5); Red Cell Distribution Width 16.2 % (9.3-17.3); White Blood Count 5.7 T/CUMM (4-12)
[2020-04-21 09:30] LABS: Calcium 9.2 MG/DL (8.5-10.1); Osmolality,Calculated 318.6 MOS/KG (273-304)
[2020-04-21] MEDS: carvediloL 12.5 MG TABLET PO SCH ×2 (10:06→20:28)
[2020-04-21] MEDS: PANTOPRAZOLE 40 MG TABLET PO SCH (10:06)
[2020-04-21] MEDS: SERTRALINE 100 MG TABLET PO SCH (10:07)
[2020-04-21] MEDS: FLUTICASONE/SALMETEROL 100-50 DISKUS 14 DOSE INH SCH ×2 (10:11→20:27)
[2020-04-21] MEDS: ISOSORBIDE MONONITRATE 30 MG TABLET PO SCH (10:16)
[2020-04-21] MEDS: hydrALAZINE 25 MG TABLET PO SCH ×3 (10:16→20:29)
[2020-04-21] MEDS: FENOFIBRATE 48 MG TABLET PO SCH (10:17)
[2020-04-21] MEDS: MEGESTROL 400 MG/10 ML UDCUP PO SCH ×2 (10:17→20:28)
[2020-04-21] MEDS: POTASSIUM CHLORIDE 10 MEQ TABLET PO SCH (10:17)
[2020-04-21] MEDS: risperiDONE 0.5 MG TABLET PO SCH ×2 (10:17→20:28)
[2020-04-21] MEDS: SKIN HEALING OINT (AQUAPHOR) 50 GM TUBE TOP SCH (10:20)
[2020-04-21] MEDS: VALPROIC ACID INJ 500 MG in SODIUM CHLORIDE 0.9% 100 ML IV SCH ×2 (12:44→22:53)
[2020-04-21] MEDS: DONEPEZIL 10 MG TABLET PO SCH (20:28)
[2020-04-21] MEDS: GABAPENTIN 300 MG CAPSULE PO SCH (20:28)
[2020-04-21] MEDS: ATORVASTATIN 20 MG TABLET PO SCH (20:28)
[2020-04-22] MEDS: INSULIN LISPRO 100 UNIT/ML SUBCUT SCH ×4 (00:37→18:29)
[2020-04-22] MEDS: cefTRIAXone 1,000 MG in SYRINGE 1 EACH IV SCH (01:04)
[2020-04-22] MEDS: LEVOTHYROXINE 50 MCG TABLET PO SCH (05:45)
[2020-04-22 07:40] LABS: Basophils % 0.2 % (0.0-0.8); Eosinophils # 0.3 10*3/uL (0.0-0.87); Hematocrit 36.5 VOL% (42.0-52.0); Hemoglobin 11.8 GM/DL (14.0-18.0); Immature Granulocytes % 0.3 %; Immature Granulocytes Absolute 0.02 #; Lymphocytes # 1.8 10*3/uL (1.4-4.0); Lymphocytes % 29.8 % (21.2-54.2); Mean Corpuscular HGB Conc 32.3 GM/DL (32-36); Mean Corpuscular Volume 88.4 FL (87-102); Mean Platelet Volume 11.4 FL (9.6-12.0); Monocytes % 8.1 % (1.7-12.7); Neutrophils % 57.6 % (38.7-73.9); Platelet Count 140 T/CUMM (130-400); Red Blood Count 4.13 MC/CUMM (3.8-5.5); White Blood Count 6.2 T/CUMM (4-12)
[2020-04-22 07:49] LABS: INR 1.1; PT Patient Result 11.8 SECS (9.8-11.9)
[2020-04-22 07:57] LABS: Albumin 2.2 G/DL (3.4-5.0); Bilirubin,Total 0.5 MG/DL (0.2-1.0); Calcium 8.7 MG/DL (8.5-10.1); Osmolality,Calculated 306.3 MOS/KG (273-304)
[2020-04-22] MEDS ORDERED: SODIUM CHLORIDE 0.9% 1,000 ML IV SCH (08:00)
[2020-04-22] MEDS: FLUTICASONE/SALMETEROL 100-50 DISKUS 14 DOSE INH SCH (08:42)
[2020-04-22] MEDS: POTASSIUM CHLORIDE 10 MEQ TABLET PO SCH (08:42)
[2020-04-22] MEDS: ISOSORBIDE MONONITRATE 30 MG TABLET PO SCH (08:42)
[2020-04-22] MEDS: carvediloL 12.5 MG TABLET PO SCH ×2 (08:42→21:06)
[2020-04-22] MEDS: hydrALAZINE 25 MG TABLET PO SCH ×3 (08:42→21:06)
[2020-04-22] MEDS: MEGESTROL 400 MG/10 ML UDCUP PO SCH ×2 (08:43→21:07)
[2020-04-22] MEDS: PANTOPRAZOLE 40 MG TABLET PO SCH (08:43)
[2020-04-22] MEDS: SERTRALINE 100 MG TABLET PO SCH (08:43)
[2020-04-22] MEDS: risperiDONE 0.5 MG TABLET PO SCH ×2 (08:43→21:08)
[2020-04-22] MEDS: FENOFIBRATE 48 MG TABLET PO SCH (08:43)
[2020-04-22] MEDS: SKIN HEALING OINT (AQUAPHOR) 50 GM TUBE TOP SCH (09:27)
[2020-04-22] MEDS ORDERED: LIDOCAINE 2% 5 ML VIAL ONE (10:45)
[2020-04-22] MEDS ORDERED: propofoL 200 MG/20 ML VIAL IV ONE (10:45)
[2020-04-22] MEDS ORDERED: ePHEDrine 50 MG/ML VIAL ONE (11:06)
[2020-04-22 12:20] LABS: Anisocytosis 2+; Macrocytosis Slight; Platelet Estimate Adequate
[2020-04-22] MEDS: VALPROIC ACID INJ 500 MG in SODIUM CHLORIDE 0.9% 100 ML IV SCH ×2 (14:20→22:44)
[2020-04-22] MEDS: DEXTROSE 5% 1,000 ML IV SCH ×2 (14:23→14:32)
[2020-04-22] MEDS ORDERED: LORazepam 2 MG/1 ML VIAL IM ONE (18:01)
[2020-04-22] MEDS ORDERED: MAGNESIUM HYDROXIDE SUSP 30 ML UDCUP PEG ONE (21:00)
[2020-04-22] MEDS: DONEPEZIL 10 MG TABLET PO SCH (21:06)
[2020-04-22] MEDS: cilostazoL 100 MG TABLET PO SCH (21:07)
[2020-04-22] MEDS: GABAPENTIN 300 MG CAPSULE PO SCH (21:07)
[2020-04-22] MEDS: ATORVASTATIN 20 MG TABLET PO SCH (21:07)
[2020-04-22] MEDS: LACTOBACILLUS RHAMNOSUS GG CAPSULE PEG SCH (21:07)
[2020-04-23] MEDS: INSULIN LISPRO 100 UNIT/ML SUBCUT SCH ×4 (00:04→20:05)
[2020-04-23] MEDS: FLUTICASONE/SALMETEROL 100-50 DISKUS 14 DOSE INH SCH ×2 (01:42→12:15)
[2020-04-23] MEDS: cefTRIAXone 1,000 MG in SYRINGE 1 EACH IV SCH (01:43)
[2020-04-23 05:59] LABS: Basophils % 0.3 % (0.0-0.8); Eosinophils # 0.2 10*3/uL (0.0-0.87); Eosinophils % 3.1 % (0.00-10.9); Hematocrit 36.9 VOL% (42.0-52.0); Immature Granulocytes % 0.4 %; Immature Granulocytes Absolute 0.03 #; Lymphocytes # 1.8 10*3/uL (1.4-4.0); Lymphocytes % 22.9 % (21.2-54.2); Mean Corpuscular HGB Conc 32.5 GM/DL (32-36); Mean Corpuscular Volume 86.8 FL (87-102); Mean Platelet Volume 11.6 FL (9.6-12.0); Monocytes % 10.1 % (1.7-12.7); Neutrophils % 63.2 % (38.7-73.9); Platelet Count 111 T/CUMM (130-400); Red Blood Count 4.25 MC/CUMM (3.8-5.5); Red Cell Distribution Width 15.6 % (9.3-17.3); White Blood Count 7.8 T/CUMM (4-12)
[2020-04-23] MEDS: LEVOTHYROXINE 50 MCG TABLET PO SCH (06:28)
[2020-04-23 06:49] LABS: Albumin 2.2 G/DL (3.4-5.0); Bilirubin,Total 0.5 MG/DL (0.2-1.0); Calcium 8.9 MG/DL (8.5-10.1); Osmolality,Calculated 299.6 MOS/KG (273-304)
[2020-04-23] MEDS ORDERED: FUROSEMIDE 20 MG/2 ML VIAL IV ONE (08:28)
[2020-04-23] MEDS ORDERED: HALOPERIDOL 5 MG/ML AMP IV ONE (09:04)
[2020-04-23] MEDS ORDERED: diphenhydrAMINE 50 MG/1 ML VIAL IV ONE (09:05)
[2020-04-23] MEDS: cilostazoL 100 MG TABLET PO SCH ×2 (12:11→21:58)
[2020-04-23] MEDS: PANTOPRAZOLE 40 MG TABLET PO SCH (12:11)
[2020-04-23] MEDS: FENOFIBRATE 48 MG TABLET PO SCH (12:11)
[2020-04-23] MEDS: carvediloL 12.5 MG TABLET PO SCH ×2 (12:11→21:59)
[2020-04-23] MEDS: MEGESTROL 400 MG/10 ML UDCUP PO SCH ×2 (12:11→21:58)
[2020-04-23] MEDS: hydrALAZINE 25 MG TABLET PO SCH ×3 (12:11→21:58)
[2020-04-23] MEDS: HydrOXYzine PAMOATE 25 MG CAPSULE PO PRN ×2 (12:11→16:44)
[2020-04-23] MEDS: LACTOBACILLUS RHAMNOSUS GG CAPSULE PEG SCH ×2 (12:11→21:58)
[2020-04-23] MEDS: POTASSIUM CHLORIDE 10 MEQ TABLET PO SCH (12:11)
[2020-04-23] MEDS: risperiDONE 0.5 MG TABLET PO SCH ×2 (12:12→21:58)
[2020-04-23] MEDS: SERTRALINE 100 MG TABLET PO SCH (12:12)
[2020-04-23] MEDS: ISOSORBIDE MONONITRATE 30 MG TABLET PO SCH (12:12)
[2020-04-23] MEDS: SKIN HEALING OINT (AQUAPHOR) 50 GM TUBE TOP SCH (12:12)
[2020-04-23] MEDS: VALPROIC ACID INJ 500 MG in SODIUM CHLORIDE 0.9% 100 ML IV SCH (16:37)
[2020-04-23] MEDS: HALOPERIDOL 1 MG TABLET PO SCH ×2 (16:43→21:58)
[2020-04-23] MEDS: ATORVASTATIN 20 MG TABLET PO SCH (21:58)
[2020-04-23] MEDS: GABAPENTIN 300 MG CAPSULE PO SCH (21:58)
[2020-04-24] MEDS: VALPROIC ACID INJ 500 MG in SODIUM CHLORIDE 0.9% 100 ML IV SCH ×2 (00:28→11:48)
[2020-04-24] MEDS: FLUTICASONE/SALMETEROL 100-50 DISKUS 14 DOSE INH SCH ×2 (00:28→11:53)
[2020-04-24] MEDS: INSULIN LISPRO 100 UNIT/ML SUBCUT SCH ×2 (00:28→12:33)
[2020-04-24] MEDS: DONEPEZIL 10 MG TABLET PO SCH (00:28)
[2020-04-24] MEDS: cefTRIAXone 1,000 MG in SYRINGE 1 EACH IV SCH (01:28)
[2020-04-24] MEDS ORDERED: SODIUM CHLORIDE 0.9% 250 ML IV ONE ×2 (03:14→03:16)
[2020-04-24] MEDS: LEVOTHYROXINE 50 MCG TABLET PO SCH (06:00)
[2020-04-24 08:38] VITALS: BP 109/46
[2020-04-24] MEDS: hydrALAZINE 25 MG TABLET PO SCH (11:49)
[2020-04-24] MEDS: PANTOPRAZOLE 40 MG TABLET PO SCH (11:49)
[2020-04-24] MEDS: FENOFIBRATE 48 MG TABLET PO SCH (11:49)
[2020-04-24] MEDS: HALOPERIDOL 1 MG TABLET PO SCH (11:49)
[2020-04-24] MEDS: cilostazoL 100 MG TABLET PO SCH (11:49)
[2020-04-24] MEDS: LACTOBACILLUS RHAMNOSUS GG CAPSULE PEG SCH (11:49)
[2020-04-24] MEDS: SERTRALINE 100 MG TABLET PO SCH (11:49)
[2020-04-24] MEDS: ISOSORBIDE MONONITRATE 30 MG TABLET PO SCH (11:49)
[2020-04-24] MEDS: POTASSIUM CHLORIDE 10 MEQ TABLET PO SCH (11:50)
[2020-04-24] MEDS: carvediloL 12.5 MG TABLET PO SCH (11:50)
[2020-04-24] MEDS: risperiDONE 0.5 MG TABLET PO SCH (11:51)
[2020-04-24] MEDS: SKIN HEALING OINT (AQUAPHOR) 50 GM TUBE TOP SCH (11:52)
[2020-04-24] MEDS: MEGESTROL 400 MG/10 ML UDCUP PO SCH (11:52)
== END 2020-04-24 15:15 | DRG 641 ==
LOC: EDBD → EDUNIT# → N.ED 20:48 → N.EDINP 04-20 01:14 → N.3E 04-20 02:11
PROVIDERS: ADMIT Internal Medicine; ATTEND Internal Medicine
PROC: EGDWPEG (ICD-10-PCS; 2020-04-22 12:05)

== ENCOUNTER 2020-08-24 19:29 | Inpatient (IN) ==
[2020-08-24] MEDS ORDERED: SODIUM CHLORIDE 0.9% 500 ML IV STA (20:22)
[2020-08-24] MEDS ORDERED: methylPREDNISolone SOD SUC 125 MG/2 ML VIAL IV STA (20:22)
[2020-08-24] MEDS ORDERED: ALBUTEROL/IPRATROPIUM 3 ML NEB RESP TX STA (20:22)
[2020-08-24] MEDS ORDERED: ONDANSETRON 4 MG/2 ML VIAL IV STA (20:22)
[2020-08-24] MEDS ORDERED: PIPERACILLIN/TAZOBACTAM 3,375 MG in SODIUM CHLORIDE 0.9% 100 ML IV STA (20:22)
[2020-08-24 21:00] LABS: Basophils # 0.1 10*3/uL (0.0-0.2); Basophils % 0.3 % (0.0-0.8); Eosinophils # 0.2 10*3/uL (0.0-0.87); Eosinophils % 0.8 % (0.00-10.9); Hematocrit 32.6 VOL% (42.0-52.0); Hemoglobin 10.5 GM/DL (14.0-18.0); Immature Granulocytes % 0.4 %; Immature Granulocytes Absolute 0.08 #; Lymphocytes % 10.3 % (21.2-54.2); Mean Corpuscular HGB Conc 32.2 GM/DL (32-36); Mean Corpuscular Volume 88.1 FL (87-102); Mean Platelet Volume 9.8 FL (9.6-12.0); Monocytes % 7.2 % (1.7-12.7); Platelet Count 306 T/CUMM (130-400); Red Cell Distribution Width 14.4 % (9.3-17.3); White Blood Count 19.7 T/CUMM (4-12)
[2020-08-24 21:10] LABS: INR 1.6; PT Patient Result 16.6 SECS (9.8-11.9)
[2020-08-24 21:17] LABS: Albumin 2.6 G/DL (3.4-5.0); Bilirubin,Total 0.5 MG/DL (0.2-1.0); Calcium 9.2 MG/DL (8.5-10.1); Osmolality,Calculated 301.7 MOS/KG (273-304); Potassium 4.3 MMOL/L (3.5-5.1); Total Protein 6.3 G/DL (6.4-8.2)
[2020-08-24 21:19] LABS: Bacteria,Urine Many /HPF (Few); Bilirubin,Urine Negative (Negative); Blood, Urine Moderate mg/dL (Negative); Glucose,Urine (UA) Negative (Negative); Hyaline Casts,Urine 79 /LPF (0-3); Ketones,Urine Negative (Negative); Mucus,Urine Few /LPF (Occasional); Nitrite,Urine Negative (Negative); Protein,Urine 30 MG/DL; RBC,Urine 43 /HPF (0-4); Squamous Epithelial Cell,Urine Occasional /HPF (0-10); Urine Appearance CLOUDY (Clear); Urine Color Amber (Yellow); WBC,Urine 525 /HPF (0-6)
[2020-08-24] MEDS: SODIUM CHLORIDE 0.9% 500 ML IV STA ×2 (21:30→21:45)
[2020-08-24] MEDS ORDERED: GLUCAGON 1 MG VIAL IM PRN (21:31)
[2020-08-24] MEDS ORDERED: ONDANSETRON 4 MG/2 ML VIAL IV PRN (21:31)
[2020-08-24] MEDS ORDERED: MORPHINE 4 MG/1 ML VIAL IV PRN (21:31)
[2020-08-24] MEDS ORDERED: diphenhydrAMINE CAP 25 MG CAPSULE PEG PRN (21:31)
[2020-08-24] MEDS ORDERED: DEXTROSE 50% 25 GM/50 ML VIAL IV PRN (21:31)
[2020-08-24] MEDS ORDERED: PROMETHAZINE 25 MG/1 ML VIAL IM PRN (21:31)
[2020-08-24] MEDS ORDERED: ACETAMINOPHEN 325 MG TABLET PEG PRN (21:31)
[2020-08-24] MEDS ORDERED: VANCOMYCIN INJ 1,000 MG in SODIUM CHLORIDE 0.9% 250 ML IV PRN (22:00)
[2020-08-24] MEDS ORDERED: SODIUM CHLORIDE 0.9% 1,000 ML IV SCH (22:00)
[2020-08-24] MEDS ORDERED: LORazepam 2 MG/1 ML VIAL IV ONE (22:09)
[2020-08-24] MEDS ORDERED: LORazepam 2 MG/1 ML VIAL IV STA (22:10)
[2020-08-24] MEDS ORDERED: VANCOMYCIN INJ 1,000 MG in SODIUM CHLORIDE 0.9% 250 ML IV STA (22:48)
[2020-08-24] MEDS ORDERED: FUROSEMIDE 40 MG/4 ML VIAL IV ONE (23:30)
[2020-08-25] MEDS: ALBUTEROL/IPRATROPIUM 3 ML NEB RESP TX SCH ×4 (00:14→19:50)
[2020-08-25 04:37] LABS: Basophils % 0.1 % (0.0-0.8); Hematocrit 32.5 VOL% (42.0-52.0); Hemoglobin 10.5 GM/DL (14.0-18.0); Immature Granulocytes % 0.5 %; Immature Granulocytes Absolute 0.09 #; Lymphocytes # 0.8 10*3/uL (1.4-4.0); Lymphocytes % 4.4 % (21.2-54.2); Mean Corpuscular HGB Conc 32.3 GM/DL (32-36); Mean Corpuscular Volume 87.4 FL (87-102); Mean Platelet Volume 10.1 FL (9.6-12.0); Monocytes % 0.6 % (1.7-12.7); Neutrophils % 94.4 % (38.7-73.9); Platelet Count 309 T/CUMM (130-400); Red Blood Count 3.72 MC/CUMM (3.8-5.5); Red Cell Distribution Width 14.4 % (9.3-17.3); White Blood Count 17.4 T/CUMM (4-12)
[2020-08-25 04:48] LABS: Calcium 9.3 MG/DL (8.5-10.1); Osmolality,Calculated 301.8 MOS/KG (273-304); Potassium 4.1 MMOL/L (3.5-5.1)
[2020-08-25 04:57] LABS: Band Neutrophils 1 % (0-10); Hypochromasia Slight; Lymphocytes 3 % (20-55); Microcytosis Slight; Ovalocytes Slight; Platelet Estimate Adequate; Segmented Neutrophils 96 % (50-85); Total Cells Counted 100
[2020-08-25] MEDS: PIPERACILLIN/TAZOBACTAM 3,375 MG in SODIUM CHLORIDE 0.9% 100 ML IV SCH ×3 (04:59→23:22)
[2020-08-25] MEDS ORDERED: carvediloL 12.5 MG TABLET ONE (07:22)
[2020-08-25] MEDS ORDERED: cilostazoL 100 MG TABLET ONE (07:22)
[2020-08-25] MEDS ORDERED: HEPARIN 5,000 UNIT/1 ML VIAL ONE (07:22)
[2020-08-25] MEDS ORDERED: HALOPERIDOL 1 MG TABLET PO SCH (09:00)
[2020-08-25] MEDS ORDERED: FUROSEMIDE 40 MG/4 ML VIAL IV SCH (09:00)
[2020-08-25] MEDS: PANTOPRAZOLE 40 MG VIAL IV SCH (09:02)
[2020-08-25] MEDS: ASPIRIN EC 325 MG TABLET PO SCH (09:02)
[2020-08-25] MEDS: carvediloL 12.5 MG TABLET PEG SCH ×2 (09:02→21:19)
[2020-08-25] MEDS: HEPARIN 5,000 UNIT/1 ML VIAL SUBCUT SCH ×2 (09:02→23:24)
[2020-08-25] MEDS: cilostazoL 100 MG TABLET PEG SCH ×2 (09:03→21:19)
[2020-08-25] MEDS: ISOSORBIDE MONONITRATE 30 MG TABLET PO SCH (09:03)
[2020-08-25] MEDS: FENOFIBRATE 48 MG TABLET PO SCH (09:18)
[2020-08-25] MEDS ORDERED: [UNRECOGNIZED DRUG - OTHER] INH SCH (12:15)
[2020-08-25] MEDS ORDERED: FLUTICASONE FUROATE VILANTEROL INH SCH (12:15)
[2020-08-25] MEDS: ATORVASTATIN 20 MG TABLET PEG SCH (21:19)
[2020-08-25] MEDS: DONEPEZIL 10 MG TABLET PEG SCH (21:19)
[2020-08-25] MEDS: risperiDONE 1 MG TABLET PEG SCH (21:19)
[2020-08-25] MEDS: VALPROIC ACID 250 MG/5 ML UDCUP PEG SCH (23:22)
[2020-08-26] MEDS: ALBUTEROL/IPRATROPIUM 3 ML NEB RESP TX SCH ×5 (00:09→19:45)
[2020-08-26] MEDS: PIPERACILLIN/TAZOBACTAM 3,375 MG in SODIUM CHLORIDE 0.9% 100 ML IV SCH ×3 (05:23→22:00)
[2020-08-26] MEDS: LEVOTHYROXINE 50 MCG TABLET PO SCH (05:55)
[2020-08-26 06:39] LABS: Basophils % 0.1 % (0.0-0.8); Eosinophils % 0.3 % (0.00-10.9); Hematocrit 33.7 VOL% (42.0-52.0); Hemoglobin 10.9 GM/DL (14.0-18.0); Immature Granulocytes % 0.7 %; Lymphocytes # 1.5 10*3/uL (1.4-4.0); Lymphocytes % 10.2 % (21.2-54.2); Mean Corpuscular HGB Conc 32.3 GM/DL (32-36); Mean Corpuscular Volume 86.9 FL (87-102); Mean Platelet Volume 10.2 FL (9.6-12.0); Monocytes % 6.7 % (1.7-12.7); Platelet Count 340 T/CUMM (130-400); Red Blood Count 3.88 MC/CUMM (3.8-5.5); Red Cell Distribution Width 14.2 % (9.3-17.3); White Blood Count 14.9 T/CUMM (4-12)
[2020-08-26 06:51] LABS: Calcium 9.4 MG/DL (8.5-10.1); Osmolality,Calculated 297.1 MOS/KG (273-304); Potassium 3.4 MMOL/L (3.5-5.1)
[2020-08-26] MEDS: PANTOPRAZOLE 40 MG VIAL IV SCH (09:48)
[2020-08-26] MEDS: cilostazoL 100 MG TABLET PEG SCH ×2 (09:49→23:23)
[2020-08-26] MEDS: HEPARIN 5,000 UNIT/1 ML VIAL SUBCUT SCH ×2 (09:49→22:00)
[2020-08-26] MEDS: ASPIRIN EC 325 MG TABLET PO SCH (09:49)
[2020-08-26] MEDS: risperiDONE 1 MG TABLET PEG SCH ×2 (09:49→22:00)
[2020-08-26] MEDS: SODIUM CHLOR 0.9% KCL 40 MEQ 40 MEQ/1,000 ML BAG IV SCH (09:50)
[2020-08-26] MEDS: FENOFIBRATE 48 MG TABLET PO SCH (09:50)
[2020-08-26] MEDS: ISOSORBIDE MONONITRATE 30 MG TABLET PO SCH (09:50)
[2020-08-26] MEDS: carvediloL 12.5 MG TABLET PEG SCH ×2 (09:50→22:00)
[2020-08-26] MEDS: SERTRALINE 100 MG TABLET PEG SCH (09:50)
[2020-08-26] MEDS: VALPROIC ACID 250 MG/5 ML UDCUP PEG SCH ×2 (09:50→22:00)
[2020-08-26] MEDS: VANCOMYCIN INJ 1,000 MG in SODIUM CHLORIDE 0.9% 250 ML IV SCH (10:20)
[2020-08-26] MEDS: ATORVASTATIN 20 MG TABLET PEG SCH (22:00)
[2020-08-26] MEDS: DONEPEZIL 10 MG TABLET PEG SCH (22:00)
[2020-08-26] MEDS: HALOPERIDOL 1 MG TABLET PO PRN (22:00)
[2020-08-27 05:35] LABS: Basophils % 0.3 % (0.0-0.8); Eosinophils # 0.1 10*3/uL (0.0-0.87); Eosinophils % 1.4 % (0.00-10.9); Hematocrit 33.1 VOL% (42.0-52.0); Hemoglobin 10.6 GM/DL (14.0-18.0); Immature Granulocytes % 0.3 %; Immature Granulocytes Absolute 0.03 #; Lymphocytes # 2.4 10*3/uL (1.4-4.0); Lymphocytes % 26.5 % (21.2-54.2); Mean Corpuscular Volume 86.4 FL (87-102); Mean Platelet Volume 10.4 FL (9.6-12.0); Monocytes % 9.8 % (1.7-12.7); Neutrophils % 61.7 % (38.7-73.9); Platelet Count 350 T/CUMM (130-400); Red Blood Count 3.83 MC/CUMM (3.8-5.5); Red Cell Distribution Width 14.4 % (9.3-17.3); White Blood Count 9.2 T/CUMM (4-12)
[2020-08-27 05:59] LABS: Calcium 9.3 MG/DL (8.5-10.1); Osmolality,Calculated 298.8 MOS/KG (273-304); Potassium 3.7 MMOL/L (3.5-5.1)
[2020-08-27] MEDS: PIPERACILLIN/TAZOBACTAM 3,375 MG in SODIUM CHLORIDE 0.9% 100 ML IV SCH ×2 (06:37→12:34)
[2020-08-27] MEDS: LEVOTHYROXINE 50 MCG TABLET PO SCH (06:37)
[2020-08-27] MEDS: SODIUM CHLOR 0.9% KCL 40 MEQ 40 MEQ/1,000 ML BAG IV SCH ×2 (07:17→09:18)
[2020-08-27] MEDS: ALBUTEROL/IPRATROPIUM 3 ML NEB RESP TX SCH ×3 (07:38→19:21)
[2020-08-27] MEDS: risperiDONE 1 MG TABLET PEG SCH ×2 (09:13→23:00)
[2020-08-27] MEDS: cilostazoL 100 MG TABLET PEG SCH ×2 (09:13→23:00)
[2020-08-27] MEDS: ISOSORBIDE MONONITRATE 30 MG TABLET PO SCH (09:13)
[2020-08-27] MEDS: SERTRALINE 100 MG TABLET PEG SCH (09:13)
[2020-08-27] MEDS: carvediloL 12.5 MG TABLET PEG SCH ×2 (09:14→23:00)
[2020-08-27] MEDS: VALPROIC ACID 250 MG/5 ML UDCUP PEG SCH ×2 (09:14→23:00)
[2020-08-27] MEDS: FENOFIBRATE 48 MG TABLET PO SCH (09:14)
[2020-08-27] MEDS: ASPIRIN EC 325 MG TABLET PO SCH (09:14)
[2020-08-27] MEDS: PANTOPRAZOLE 40 MG VIAL IV SCH (09:15)
[2020-08-27] MEDS: VANCOMYCIN INJ 1,000 MG in SODIUM CHLORIDE 0.9% 250 ML IV SCH (09:15)
[2020-08-27] MEDS: HEPARIN 5,000 UNIT/1 ML VIAL SUBCUT SCH ×2 (09:16→23:00)
[2020-08-27] MEDS: hydrALAZINE 20 MG/1 ML VIAL IV PRN ×2 (09:29→16:43)
[2020-08-27] MEDS: cefTRIAXone 1,000 MG in SODIUM CHLORIDE 0.9% 100 ML IV SCH (13:45)
[2020-08-27] MEDS: ATORVASTATIN 20 MG TABLET PEG SCH (23:00)
[2020-08-27] MEDS: DONEPEZIL 10 MG TABLET PEG SCH (23:00)
[2020-08-28] MEDS: ALBUTEROL/IPRATROPIUM 3 ML NEB RESP TX SCH ×4 (01:40→19:07)
[2020-08-28] MEDS: HALOPERIDOL 1 MG TABLET PO PRN (06:15)
[2020-08-28] MEDS: LEVOTHYROXINE 50 MCG TABLET PO SCH (06:15)
[2020-08-28] MEDS: SODIUM CHLOR 0.9% KCL 40 MEQ 40 MEQ/1,000 ML BAG IV SCH (09:49)
[2020-08-28] MEDS: ASPIRIN EC 325 MG TABLET PO SCH (09:50)
[2020-08-28] MEDS: HEPARIN 5,000 UNIT/1 ML VIAL SUBCUT SCH ×2 (09:50→21:45)
[2020-08-28] MEDS: risperiDONE 1 MG TABLET PEG SCH ×2 (09:50→21:45)
[2020-08-28] MEDS: PANTOPRAZOLE 40 MG VIAL IV SCH (09:50)
[2020-08-28] MEDS: carvediloL 12.5 MG TABLET PEG SCH ×2 (09:51→21:45)
[2020-08-28] MEDS: ISOSORBIDE MONONITRATE 30 MG TABLET PO SCH (09:51)
[2020-08-28] MEDS: cilostazoL 100 MG TABLET PEG SCH ×2 (09:51→21:45)
[2020-08-28] MEDS: SERTRALINE 100 MG TABLET PEG SCH (09:51)
[2020-08-28] MEDS: VALPROIC ACID 250 MG/5 ML UDCUP PEG SCH ×2 (09:51→21:45)
[2020-08-28] MEDS: FENOFIBRATE 48 MG TABLET PO SCH (09:51)
[2020-08-28] MEDS: cefTRIAXone 1,000 MG in SODIUM CHLORIDE 0.9% 100 ML IV SCH (13:23)
[2020-08-28] MEDS: ATORVASTATIN 20 MG TABLET PEG SCH (21:45)
[2020-08-28] MEDS: DONEPEZIL 10 MG TABLET PEG SCH (21:45)
[2020-08-29] MEDS: ALBUTEROL/IPRATROPIUM 3 ML NEB RESP TX SCH ×3 (01:03→13:34)
[2020-08-29 06:14] LABS: Basophils % 0.2 % (0.0-0.8); Eosinophils # 0.1 10*3/uL (0.0-0.87); Eosinophils % 1.8 % (0.00-10.9); Hematocrit 28.2 VOL% (42.0-52.0); Hemoglobin 8.9 GM/DL (14.0-18.0); Immature Granulocytes % 0.6 %; Immature Granulocytes Absolute 0.04 #; Lymphocytes # 2.1 10*3/uL (1.4-4.0); Mean Corpuscular HGB Conc 31.6 GM/DL (32-36); Mean Platelet Volume 9.8 FL (9.6-12.0); Monocytes % 8.6 % (1.7-12.7); Neutrophils % 54.8 % (38.7-73.9); Platelet Count 331 T/CUMM (130-400); Red Blood Count 3.24 MC/CUMM (3.8-5.5); Red Cell Distribution Width 14.4 % (9.3-17.3); White Blood Count 6.3 T/CUMM (4-12)
[2020-08-29 06:30] LABS: Calcium 8.7 MG/DL (8.5-10.1); Osmolality,Calculated 287.1 MOS/KG (273-304); Potassium 3.9 MMOL/L (3.5-5.1)
[2020-08-29] MEDS: risperiDONE 1 MG TABLET PEG SCH (09:09)
[2020-08-29] MEDS: FENOFIBRATE 48 MG TABLET PO SCH (09:09)
[2020-08-29] MEDS: VALPROIC ACID 250 MG/5 ML UDCUP PEG SCH (09:09)
[2020-08-29] MEDS: ISOSORBIDE MONONITRATE 30 MG TABLET PO SCH (09:09)
[2020-08-29] MEDS: cilostazoL 100 MG TABLET PEG SCH (09:09)
[2020-08-29] MEDS: carvediloL 12.5 MG TABLET PEG SCH (09:09)
[2020-08-29] MEDS: SERTRALINE 100 MG TABLET PEG SCH (09:09)
[2020-08-29] MEDS: ASPIRIN EC 325 MG TABLET PO SCH (09:09)
[2020-08-29] MEDS: HEPARIN 5,000 UNIT/1 ML VIAL SUBCUT SCH (09:10)
[2020-08-29] MEDS: PANTOPRAZOLE 40 MG VIAL IV SCH (09:10)
[2020-08-29] MEDS: LEVOTHYROXINE 50 MCG TABLET PO SCH (09:34)
[2020-08-29 12:00] VITALS: BP 162/81
[2020-08-29] MEDS: cefTRIAXone 1,000 MG in SODIUM CHLORIDE 0.9% 100 ML IV SCH (13:55)
== END 2020-08-29 16:00 | DRG 193 ==
LOC: EDSEX → EDBD → EDUNIT# → N.ED 19:29 → SUATTDRO 21:31 → N.EDINP 21:31 → N.TELEN 08-25 15:18
PROVIDERS: ADMIT Internal Medicine; ATTEND Internal Medicine